=== PATIENT | female | born 1995 | race African-American/Black ===

== ENCOUNTER 2017-09-27 20:55 | Emergency (ER) | payer OTHER ==
[2017-09-27] MEDS ORDERED: HYDROcodone/Acetaminophen 10/325 mg Tablet ONE (21:02)
[2017-09-27] MEDS ORDERED: Adacel (T-DAP) 0.5 ML VIAL ONE (21:06)
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
== END 2017-09-27 21:50 | disposition home or self-care (01) ==
LOC: ERS 20:55
DX: S63.501A Unspecified sprain of right wrist, initial encounter (principal); S60.011A Contusion of right thumb without damage to nail, initial encounter; J45.909 Unspecified asthma, uncomplicated; F41.9 Anxiety disorder, unspecified; Z79.899 Other long term (current) drug therapy; V43.52XA Car driver injured in collision with other type car in traffic accident, initial encounter
CPT/HCPCS: 90471; 90715

== ENCOUNTER 2017-10-02 12:01 | Emergency (ER) | payer OTHER ==
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
== END 2017-10-02 16:29 ==
LOC: ERS 12:01
DX: F07.81 Postconcussional syndrome (principal); J45.909 Unspecified asthma, uncomplicated; F41.9 Anxiety disorder, unspecified; Z79.899 Other long term (current) drug therapy
CPT/HCPCS: 70450

== ENCOUNTER 2017-11-02 17:46 | Emergency (ER) | payer OTHER ==
[2017-11-02] MEDS ORDERED: methylPREDNISolone Sod Succ/PF 125 MG/2 ML VIAL ONE (18:20)
== END 2017-11-02 19:46 | disposition home or self-care (01) ==
LOC: ERS 17:46
DX: J45.901 Unspecified asthma with (acute) exacerbation (principal); F43.9 Reaction to severe stress, unspecified; F41.9 Anxiety disorder, unspecified; F32.9 Major depressive disorder, single episode, unspecified; Z79.899 Other long term (current) drug therapy
CPT/HCPCS: 96374; J2930

== ENCOUNTER 2017-11-19 15:51 | Outpatient (CLI) | payer OTHER | END 2017-11-19 15:52 | disposition home or self-care (01) | LOC: BICCT 15:51 | PROVIDERS: ATTEND Family Medicine | DX: S62.231A Other displaced fracture of base of first metacarpal bone, right hand, initial encounter for closed fracture (principal); M54.12 Radiculopathy, cervical region ==

== ENCOUNTER 2018-02-28 21:19 | Emergency (ER) | payer OTHER, SELFPAY ==
[2018-02-28 22:20] LABS: Bilirubin Negative (Negative); Blood, Urine Negative (Negative); Clarity CLEAR (Clear); Glucose, Urine (Dipstick) Negative (Negative); Leukocyte Negative (Negative); Nitrite Negative (Negative); Protein, Urine (Dipstick) Negative (Neg-Trace); Specific Gravity, Urine 1.026 (1.002-1.036)
[2018-02-28 22:23] LABS: Pregnancy Test - Urine (BHCG) POSITIVE (Negative); Pregu Control Background? CLEAR/WHITE (CLR/WHITE); Pregu Control Bar Appear? YES (CONTROL BAR); Specific Gravity 1.026 (1.002-1.036)
--- NOTE | 2018-03-01 10:25 | ULT ---
PRELIMINARY REPORT/[facility]/EMERGENTY AFTER-HOURS PROCEDURE US , Transvaginal CLINICAL HISTORY: 22 years old, female; ; Pain; Cramping at 4 wks preg; Hcg = 201 TECHNIQUE: Real-time transvaginal obstetrical ultrasound of the maternal pelvis and a first trimester with image documentation. Transvaginal imaging was used for better evaluation of the fetus and adnexa . COMPARISON: No relevant prior studies available. FINDINGS: The uterus measures 8.7 x 4.7 x 5.7 cm and exhibits homogeneous echogenicity. Enometrial stripe measures 1.1 cm without evidence of internal fluid within the endometrial canal. No evidence of intrauterine . The right ovary measures 3.8 x 2.3 x 1.8 cm. The left ovary measures 2.4 x 1.0 x 2.1 cm. Normal Doppler flow to each ovary. Minimal amount of free pelvic fluid. IMPRESSION: No evidence of intrauterine . Normal uterus and ovaries. Thank you for allowing us to participate in the care of your patient. Dictated and Authenticated by: Saturnino Zavala MD 03/01/2018 12:57 AM Central Time ([place] & [place]) FINAL REPORT PELVIC ULTRASOUND: HISTORY: Pelvic pain, , and cramping. The patient is reported 4 weeks . HCG is 201. FINDINGS: Real-time imaging of the pelvis was obtained endovaginally. This shows a uterus measuring 4.6 x 5.7 x 8.6 cm. The endometrium is heterogeneous in appearance. It is thickened measuring in the 1 cm ran ge. No intrauterine is identified. The left ovary is normal in size and appearance. The right ovary also appears unremarkable. DOPPLER EVALUATION WITH SPECTRAL ANALYSIS: Normal flow is shown through the adnexa. IMPRESSION: 1. No signs of any intrauterine or ectopic . This does not exclude an early intrauterine o r ectopic. 2. This report is in agreement with the temporary report issued by [facility].
[2018-03-02 13:19] LABS: Chlamydia by PCR Not Detected (NotDetected); GC by PCR Not Detected (NotDetected)
== END 2018-03-01 01:08 | disposition home or self-care (01) ==
LOC: ERS 21:19
DX: R10.30 Lower abdominal pain, unspecified (principal); J45.909 Unspecified asthma, uncomplicated; F41.9 Anxiety disorder, unspecified; F32.9 Major depressive disorder, single episode, unspecified
CPT/HCPCS: 36415; 76856; 81003; 81025; 84702; 87480; 87491; 87510; 87591; 87660

== ENCOUNTER 2018-07-06 12:01 | Day surgery (SDC) | payer MEDICAID, OTHER ==
[2018-07-06] MEDS ORDERED: Ondansetron PF 4 MG/2 ML Vial IVP PRN (12:23)
[2018-07-06] MEDS ORDERED: Promethazine HCl 25 MG/ML VIAL IM PRN (12:23)
[2018-07-06] MEDS ORDERED: Acetaminophen 500 MG TAB PO PRN (12:23)
[2018-07-06] MEDS ORDERED: Dextrose 5%-Lactated Ringers 1,000 ML IV SCH (12:30)
--- NOTE | 2018-07-06 12:31 | PDOC.LDHP ---
Labor and Delivery H&P HPI: 20 y/o at 22 and 0/7 weeks, who called the office this morning c/o severe "billious" vomiting. No Diarrhea, (pos) Nausea. No fever reported. Current gestational age (weeks): 22 Grav: 2 Para: 1 Abnormal US findings: No Current medications: pre- vitamins Previous surgical history: none Allergies/Adverse Reactions: Allergies Allergy/AdvReac Type Severity Reaction Status Date / Time amoxicillin Allergy Verified 06/18/15 03:08 Penicillins Allergy Verified 06/18/15 03:08 Social history: none - Physical Exam Vital signs reviewed and normal: yes General: NAD, resting Heart: RRR Lungs: CTAB Abdomen: gravid Extremeties: no edema FHT: category 1 - Assessment Nausea/Vomiting in - Plan -: CMP, IV Fluids, AntiEmetics, Gallbladder US, UA
[2018-07-06 13:16] LABS: Hemoglobin 12.1 g/dL (12.0-16.0); Mean Corpuscular HGB CONC 33.5 g/dL (32.0-36.0); Mean Corpuscular Hemoglobin 29.7 pg (27.0-31.0); Mean Corpuscular Volume 88.6 fL (78.0-98.0); Mean Platelet Volume 7.5 fL (7.4-10.4); Platelet Count 214 thou/uL (130-400); RBC Distribution Width 12.4 % (11.5-14.5); Red Blood Cell (RBC) Count 4.07 mill/uL (4.20-5.40); White Blood Cell (WBC) Count 8.5 thou/uL (4.8-10.8)
[2018-07-06 13:20] LABS: Bilirubin Small (Negative); Blood, Urine Negative (Negative); Clarity CLEAR (Clear); Glucose, Urine (Dipstick) Negative (Negative); Leukocyte Small (Negative); Nitrite Negative (Negative); Protein, Urine (Dipstick) 30 mg/dL (Neg-Trace); Specific Gravity, Urine 1.032 (1.002-1.036); Urobilinogen 0.2 mg/dL (0.2-1.0)
[2018-07-06 13:22] LABS: Bacteria/HPF None Seen HPF (None Seen); Hyaline Casts/LPF 0-3 HYALINE CAST LPF (0-3 Hyaline); Pathc Cast-AUWi Flag 0.58 (0-2.49); RBC/HPF 0-3 HPF (0-3); WBC/HPF 0-3 HPF (0-3)
[2018-07-06 13:39] LABS: ALT (SGPT) Less than 7 U/L (8-55); AST (SGOT) 16 U/L (5-34); Albumin 3.7 g/dL (3.5-5.0); Alkaline Phosphatase 79 U/L (40-150); Anion Gap 14 mmol/L (10-20); BUN (Urea Nitrogen) 5 mg/dL (7.0-18.7); Bilirubin, Total 0.4 mg/dL (0.2-1.2); Calc. Creatinine Clearance 0 mL/min (70-130); Calcium 9.4 mg/dL (7.8-10.44); Carbon Dioxide 22 mmol/L (22-29); Chloride 105 mmol/L (98-107); Estimated GFR-MDRD Greater than 90; Globulin 3.2 g/dL (2.4-3.5); Glucose 74 mg/dL (70-105); Potassium 3.6 mmol/L (3.5-5.1); Protein, Total 6.9 g/dL (6.0-8.3); Sodium 137 mmol/L (136-145)
--- NOTE | 2018-07-06 14:09 | ULT ---
ULTRASOUND GALLBLADDER RIGHT UPPER QUADRANT: History: Vomiting. Comparison: None. FINDINGS: Real-time grayscale color evaluation of the abdomen was performed. Liver measures 11.8 cm in length. There is normal appearance to the gallbladder wall measuring less t rosen 3 mm. There is some small volume gallbladder sludge. No pericholecystic fluid. Sonographic Borrero's sign is negative. Visualized portions of the pancreas and IVC are unremarkable. Hepatic echotexture is normal. No mass. Portal vein is patent. Antegrade flow. Common bile duct measu res 4 mm. Right kidney measures 8.5 x 4.5 x 4.6 cm without mass, hydronephrosis or abnormal calcifications. IMPRESSION: Small volume gallbladder sludge. Otherwise, unremarkable exam. POS: [facility]
[2018-07-06 14:16] VITALS: BMI 28.8
== END 2018-07-06 15:30 | disposition home health service (06) ==
LOC: L&D/OP 12:01
PROVIDERS: ATTEND Obstetrics & Gynecology
DX: O21.2 Late vomiting of pregnancy (principal); Z3A.22 22 weeks gestation of pregnancy; Z88.0 Allergy status to penicillin; Z79.899 Other long term (current) drug therapy
CPT/HCPCS: 36415; 76705; 80053; 81003; 81015; 85027; 96360; 96375; 99284; J2405

== ENCOUNTER 2018-08-30 13:44 | Day surgery (SDC) | payer OTHER ==
[2018-08-30 14:16] VITALS: BMI 31.8
--- NOTE | 2018-08-30 15:31 | PRG ---
DATE OF SERVICE: PRESENTING COMPLAINT: Decreased movement, vaginal bleeding, post coital at 30 weeks gestation. HISTORY OF PRESENT ILLNESS: Ms. Benjamin see Dr. Chao. Her final ELISEO is 514, placing her at 30 weeks gestation. She reports that she has had decreased movement today after some spotting with intercourse last night. She had some cramps yesterday, but none today. Upon presentation, she states that she has begun to feel movement on the way to the hospital. 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 MEDICAL HISTORY: Denies. SURGICAL HISTORY: Denies. ALLERGIES: AMOXICILLIN AND PENICILLIN. MEDICATIONS: 1. Albuterol. 2. Keflex. 3. Hydrocodone. 4. Flagyl. OB LABS: Blood type and Rh are not on the antepartum record. Hematocrit is not on the OB record. OB record only contains negative genetic screening test and a normal 50 g. SOCIAL HISTORY: Denies tobacco, alcohol, or drug use. FAMILY HISTORY: Noncontributory. REVIEW OF SYSTEMS: Noncontributory. PHYSICAL EXAMINATION: GENERAL: Black female, in no acute distress. VITAL SIGNS: Blood pressure 118/72, pulse 85, respirations 18, temperature 97.6. HEENT: Within normal limits. LUNGS: Clear to auscultation bilaterally. HEART: Regular rate and rhythm. ABDOMEN: Soft, nontender. Fundal height 30 cm. FHTs 140s. GENITALIA: Vulva without lesions. Vagina, sterile spec exam was performed, normal leukorrhea. Her was noted with a cervix, it was slightly friable with small amount of apparent post trauma erythema. No dilatation noted visually. No bulging membranes. Digital exam revealed a cervix that was soft, but long and high and closed. EXTREMITIES: No clubbing, cyanosis, or edema. Prolonged monitoring for greater 30 minutes was carried out which revealed FHTs in the 140s to 150s, positive acceleration, no decelerations. No contractions. Category I heart rate tracing. IMPRESSION: Reactive NST with no evidence of labor with postcoital spotting and decreased movement, now resolved in the third trimester. PLAN: Reassurance. ER precautions, discharge home. The patient to keep scheduled followup in [address] Chao. Job ID: [id number]
== END 2018-08-30 15:05 | disposition home or self-care (01) ==
LOC: L&D/OP 13:44
PROVIDERS: ATTEND Obstetrics & Gynecology
DX: O36.8130 Decreased fetal movements, third trimester, not applicable or unspecified (principal); O46.93 Antepartum hemorrhage, unspecified, third trimester; Z3A.30 30 weeks gestation of pregnancy; Z88.1 Allergy status to other antibiotic agents; Z88.0 Allergy status to penicillin
CPT/HCPCS: 99282

== ENCOUNTER 2018-10-18 23:51 | Day surgery (SDC) | payer OTHER ==
[2018-10-19 00:29] VITALS: BP 123/77; TEMP 98; BMI 32.4
[2018-10-19] MEDS ORDERED: Albuterol Sulfate 2.5 mg/3 ml Neb NEB SCH (02:00)
--- NOTE | 2018-10-19 03:02 | ER ---
DATE OF SERVICE: 10/19/2018 TIME OF SERVICE: 2:30 a.m. PRESENTING COMPLAINT: Decreased movement and contractions. HISTORY OF PRESENT ILLNESS: Ms. Benjamin is a 23-year-old G2, P1 with an EDC of 11/09. She [address] Dr[address] Chao. She reports decreased movement this evening and contractions and just wanted to get her baby checked out. 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 O positive. Antibody negative. Pap negative. Rubella immune. VDRL nonreactive. Hepatitis B, GC, chlamydia negative. Group B strep not on the chart. MEDICAL HISTORY: Mild asthma. SURGICAL HISTORY: Denies. ALLERGIES: DENIES. MEDICATIONS: vitamins. SOCIAL HISTORY: Denies tobacco, alcohol, or IV drug use. FAMILY HISTORY: Noncontributory. REVIEW OF SYSTEMS: Noncontributory. PHYSICAL EXAMINATION: GENERAL: White female resting comfortably. VITAL SIGNS: Blood pressure 119/73, pulse 107, temperature 98, respirations 18. HEENT: Within normal limits. LUNGS: Clear to auscultation bilaterally. HEART: Regular rate and rhythm. Mild tachycardia. ABDOMEN: Soft with occasional indelible contractions. FHTs 140s. VULVA: Without lesions. VAGINA: Without discharge. CERVIX: 1, long and high cephalic ballots. No evidence of rupture of membranes. Nonstress test was carried out for 2 hours. Category I heart rate tracing was noted with positive accelerations, no decelerations. Baseline is 140s to 150s. The patient had complaints of mild asthma, was administered albuterol nebulizer x1 and responded well to that. Cervix was rechecked for 2 hours with no change. IMPRESSION: No evidence of labor at 37 weeks' gestation with a reactive heart rate tracing. PLAN: Discharge home. Keep scheduled followup with Dr. Chao. Job ID: [id number]
== END 2018-10-19 02:45 | disposition home or self-care (01) ==
LOC: L&D/OP 23:51
PROVIDERS: ATTEND Obstetrics & Gynecology
DX: O36.8130 Decreased fetal movements, third trimester, not applicable or unspecified (principal); O47.1 False labor at or after 37 completed weeks of gestation; O99.513 Diseases of the respiratory system complicating pregnancy, third trimester; J45.909 Unspecified asthma, uncomplicated; Z88.0 Allergy status to penicillin; Z79.899 Other long term (current) drug therapy; Z3A.37 37 weeks gestation of pregnancy
CPT/HCPCS: 94640; 99283; J7611

== ENCOUNTER 2018-10-21 12:39 | Inpatient (IN) | payer OTHER ==
[~2018-10-21 12:39] MED LIST: Bupivacaine/Epinephrine 0.25% 30 ML VIAL ONE
[2018-10-21 13:19] VITALS: BMI 31.3
[2018-10-21] MEDS ORDERED: Ondansetron PF 4 MG/2 ML Vial IVP PRN (18:56)
[2018-10-21] MEDS ORDERED: Ibuprofen 800 MG TAB PO PRN (18:56)
[2018-10-21] MEDS ORDERED: HYDROcodone/Acetaminophen 5/325 mg Tablet PO PRN ×2 (18:56)
[2018-10-21] MEDS ORDERED: Butorphanol Tartrate 1 MG/ML VIAL SLOW IVP PRN (18:56)
[2018-10-21] MEDS ORDERED: NS / Oxytocin 40 units/1000ml 1,000 ML IV PRN (18:56)
[2018-10-21] MEDS ORDERED: Lidocaine 1% (PF) 30 ML VIAL SC PRN (18:56)
[2018-10-21] MEDS ORDERED: Lactated Ringer's 1,000 ML IV SCH (19:00)
[2018-10-21] MEDS ORDERED: Fentanyl 4 mcg/Bup 0.1% Cadd 100 ML ONE (19:30)
[2018-10-21 19:39] LABS: Hemoglobin 11.9 g/dL (12.0-16.0); Mean Corpuscular HGB CONC 32.4 g/dL (32.0-36.0); Mean Corpuscular Hemoglobin 27.9 pg (27.0-31.0); Mean Corpuscular Volume 86.3 fL (78.0-98.0); Mean Platelet Volume 7.6 fL (7.4-10.4); Platelet Count 198 thou/uL (130-400); RBC Distribution Width 12.6 % (11.5-14.5); Red Blood Cell (RBC) Count 4.25 mill/uL (4.20-5.40); White Blood Cell (WBC) Count 13.1 thou/uL (4.8-10.8)
[2018-10-21 20:19] LABS: Syphilis Antibody Nonreactive (Nonreactive); Syphilis Antibody Index 0.04 S/CO (<1.00 Non-Reactive)
[2018-10-22 00:15] LABS: HBSAg Index 0.33 S/CO (0-0.99); Hep B Surf Ag Non-Reactive S/CO (NonReactive)
[2018-10-22] MEDS ORDERED: Promethazine HCl 25 MG/ML VIAL IM PRN ×2 (01:19→13:08)
[2018-10-22] MEDS ORDERED: Hydrocerin (Eucerin) Cream 120 gm Jar TOP PRN (01:19)
[2018-10-22] MEDS ORDERED: Lactated Ringer's 500 ML IV PRN (01:19)
[2018-10-22] MEDS ORDERED: Naloxone HCl 0.4 mg/ml Vial IVP PRN ×2 (01:19)
[2018-10-22] MEDS ORDERED: Acetaminophen 325 MG TAB PO PRN (01:19)
[2018-10-22] MEDS ORDERED: ePHEDrine/0.9% NaCl/PF SYRINGE 50 mg/10 ml SLOW IVP PRN (01:19)
[2018-10-22] MEDS ORDERED: diphenhydrAMINE 50 MG/ML VIAL IVP PRN (01:19)
[2018-10-22] MEDS ORDERED: Ondansetron PF 4 MG/2 ML Vial IVP PRN ×2 (01:19→13:08)
[2018-10-22] MEDS ORDERED: Fentanyl 4 mcg/Bupivacaine 0.1% Cassette 100 ML EPIDURAL SCH (01:30)
[2018-10-22] MEDS ORDERED: Communication Order-Pharmacy FS SCH (01:30)
[2018-10-22] MEDS: Lactated Ringer's 1,000 ML IV SCH ×2 (03:16→08:41)
[2018-10-22] MEDS ORDERED: Oxytocin 10 UNITS/ML VIAL ONE (06:16)
[2018-10-22] MEDS ORDERED: NS w/ Oxytocin 10 units 500 ML IVPB SCH (06:30)
[2018-10-22] MEDS ORDERED: Lidocaine 1% (PF) 30 ML VIAL ONE (07:45)
[2018-10-22] MEDS ORDERED: NS / Oxytocin 40 units/1000ml 1,000 ML ONE (07:45)
[2018-10-22] MEDS ORDERED: Fentanyl 4 mcg/Bup 0.1% Cadd 100 ML ONE (08:28)
--- NOTE | 2018-10-22 10:45 | PDOC.EVN ---
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 I arrived within in 1 min of call. Called for FHR decel over 3 minutes to 70s. HX: Recent PATRIC with hypotension noted to 110s/60s from her baseline. Her last exam was 6cm...now by RN just prior to my eval. I arrived to find patient in lateral decub. FHTs now 120s. I performed Vag exam: CX by my exam, Cephalic. Internal placed by RN prior to my arrival Assessment: with FHR decel now recovered likely due to PATRIC induced hypotension and rapid cervical change. Plan: IVF bolus in use; anesthesia aware; Dr Chao (patients provider) called. Follow closely.
--- NOTE | 2018-10-22 12:37 | PDOC.LDHP ---
Labor and Delivery H&P Chief complaint: contractions Current gestational age (weeks): 38 Grav: 2 Para: 1 Current complications: none Abnormal US findings: No Current medications: pre- vitamins Previous surgical history: none Allergies/Adverse Reactions: Allergies Allergy/AdvReac Type Severity Reaction Status Date / Time amoxicillin Allergy Verified 10/21/18 13:15 Penicillins Allergy Verified 10/21/18 13:15 Social history: none - Physical Exam Vital signs reviewed and normal: yes General: NAD, resting, breathing through contractions Heart: RRR Lungs: CTAB Abdomen: gravid Extremeties: no edema FHT: category 1 - Vaginal Exam cm dilated: 5 - Assessment L&D Assessment: term patient in labor - Plan Plan: admit to L&D, labor augmentation if indicated
[2018-10-22] MEDS ORDERED: Bisacodyl 10 MG SUPP PR PRN (13:08)
[2018-10-22] MEDS ORDERED: Methylergonovine 0.2 MG/ML VIAL IM PRN (13:08)
[2018-10-22] MEDS ORDERED: Benzocaine-Menthol 82.5 ML CAN TOP PRN (13:08)
[2018-10-22] MEDS ORDERED: HYDROcodone/Acetaminophen 5/325 mg Tablet PO PRN ×2 (13:08)
[2018-10-22] MEDS ORDERED: Milk Of Magnesia 30 ML UDCUP PO PRN (13:08)
[2018-10-22] MEDS ORDERED: diphenhydrAMINE 25 MG CAP PO PRN (13:08)
[2018-10-22] MEDS ORDERED: Measles/Mumps/Rubella 10 MCG/0.5 ML VIAL SC ONE (13:08)
[2018-10-22] MEDS ORDERED: Lanolin Ointment 7 GM TUBE TOP PRN (13:08)
[2018-10-22] MEDS ORDERED: NS / Oxytocin 40 units/1000ml 1,000 ML IV SCH (13:08)
[2018-10-22] MEDS ORDERED: Adacel (T-DAP) 0.5 ML SYRINGE IM ONE (13:08)
[2018-10-22] MEDS ORDERED: Preparation H Ointment 28 GM TUBE PR PRN (13:08)
[2018-10-22] MEDS ORDERED: Varicella virus, LIVE 0.5 ML VIAL SC ONE (13:08)
[2018-10-22] MEDS: Ibuprofen 800 MG TAB PO SCH (15:59)
[2018-10-22] MEDS: Docusate Calcium (SURFAK) 240 MG CAP PO SCH (21:12)
[2018-10-22] MEDS: Ferrous Sulfate 325 MG TAB PO SCH (23:27)
[2018-10-23] MEDS: Ibuprofen 800 MG TAB PO SCH ×4 (00:19→22:12)
[2018-10-23 05:41] LABS: Hemoglobin 9.4 g/dL (12.0-16.0); Mean Corpuscular HGB CONC 32.2 g/dL (32.0-36.0); Mean Corpuscular Hemoglobin 28.6 pg (27.0-31.0); Mean Corpuscular Volume 88.7 fL (78.0-98.0); Mean Platelet Volume 7.6 fL (7.4-10.4); Platelet Count 165 thou/uL (130-400); RBC Distribution Width 12.7 % (11.5-14.5); Red Blood Cell (RBC) Count 3.28 mill/uL (4.20-5.40); White Blood Cell (WBC) Count 14.8 thou/uL (4.8-10.8)
[2018-10-23] MEDS: Ferrous Sulfate 325 MG TAB PO SCH ×2 (09:24→17:46)
[2018-10-23] MEDS: Docusate Calcium (SURFAK) 240 MG CAP PO SCH ×2 (09:24→22:11)
--- NOTE | 2018-10-23 12:34 | PDOC.PP ---
Post Progress Note Post Day #: 1 PO intake tolerated: yes Flatus: yes Ambulation: yes Vital Signs (12 hours) Temp Pulse Resp BP BP Pulse Ox 10/23/18 11:46 97.9 F 89 16 126/69 97 10/23/18 08:00 97.9 F 80 16 116/57 L 97 10/23/18 05:00 98.7 F 75 20 87/51 L Weight Weight 200 lb - Physical Examination General: NAD Cardiovascular: no m/r/g Respiratory: clear to auscultation bilaterally, non-labored breathing Abdominal: + bowel sounds, lochia, no distention Extremities: negative homans (B) Neurological: no gross focal deficits Psychiatric: A&Ox3 (DC to home in the morning), normal affect Result Diagrams: 10/23/18 04:39 Additional Labs: Post Labs Blood Type O POSITIVE 10/21/18 19:30 Hep Bs Antigen Non-Reactive S/CO (NonReactive) 10/21/18 19:30
[2018-10-23 23:41] VITALS: BP 136/82; TEMP 98.2
--- NOTE | 2018-10-24 03:58 | DN ---
DATE OF PROCEDURE: 10/22/2018 PREOPERATIVE DIAGNOSIS: Intrauterine at 37 weeks and 2 days with spontaneous labor, non-reassuring heart tones during the 2nd stage of labor, necessitating expedited delivery using the Kiwi vacuum delivery method. POSTOPERATIVE DIAGNOSIS: Intrauterine at 37 weeks and 2 days with spontaneous labor, non-reassuring heart tones during the 2nd stage of labor, necessitating expedited delivery using the Kiwi vacuum delivery method. PROCEDURE PERFORMED: Vacuum-assisted vaginal delivery using the Kiwi vacuum system. FINDINGS: Viable male infant weighing 2961 g or 6 pounds 8 ounces. Apgars 9 and 9. QUANTITATIVE BLOOD LOSS: 110 mL. COMPLICATIONS: None. PROCEDURE IN DETAIL: The patient presented to [facility] where she was admitted to the labor and delivery service. The patient underwent a normal and uneventful labor with normal cervical dilatation until she was found to be completely dilated. She was then allowed to push and was able to bring the baby down and delivered the baby in a vertex presentation without difficulties. Once the head delivered in occiput anterior position, the shoulders followed spontaneously along with the rest of the baby's body. Once out the baby's mouth and nose were bulb suctioned. The cord was clamped and cut and baby was handed to waiting attendants. Cord blood was collected. Gentle fundal massage was performed and the placenta delivered intact without problems. Hemostasis was assured. Quantitative blood loss was calculated. Inspection of the cervix, vaginal vault, and perineum did not reveal any lacerations needing suturing. Once again, hemostasis was within normal limits and the patient was allowed to recover in the labor and delivery room. Baby went to nursery. Addendum: The Kiwi vacuum was applied once the patient was completely dilated. It was used through two contractions resulting in the delivery of the head without difficulty. The shoulders delivered spontaneously without issues. Job ID: [id number]
[2018-10-24] MEDS: Ibuprofen 800 MG TAB PO SCH ×2 (06:18→06:30)
[2018-10-24] MEDS: Ferrous Sulfate 325 MG TAB PO SCH (09:43)
[2018-10-24] MEDS: Docusate Calcium (SURFAK) 240 MG CAP PO SCH (09:43)
== END 2018-10-24 11:45 | disposition home or self-care (01) | DRG 807 ==
LOC: L&D/OP 12:39 → L&D 20:35 → 3SW 10-22 19:03
PROVIDERS: ADMIT Obstetrics & Gynecology; ATTEND Obstetrics & Gynecology
PROC: 10D07Z6 Extraction of Products of Conception, Vacuum, Via Natural or Artificial Opening (ICD-10-PCS; principal; 2018-10-22)
DX: O76 Abnormality in fetal heart rate and rhythm complicating labor and delivery (principal); Z37.0 Single live birth; Z3A.37 37 weeks gestation of pregnancy; Z88.0 Allergy status to penicillin
CPT/HCPCS: 36415; 51702; 85027; 86780; 86850; 86900; 86901; 87340; 99285; J2001; J2405; J2590

== ENCOUNTER 2018-11-26 04:08 | Emergency (ER) | payer OTHER ==
[2018-11-26] MEDS ORDERED: Famotidine/PF 20 mg/2ml Vial ONE (05:22)
[2018-11-26] MEDS ORDERED: Metoclopramide HCl 10 MG/2 ML VIAL ONE (05:22)
[2018-11-26] MEDS ORDERED: diphenhydrAMINE 50 MG/ML VIAL ONE (05:22)
[2018-11-26 05:37] LABS: #Lymphocytes 0.7 thou/uL (1.20-3.40); #Monocytes 0.2 thou/uL (0.11-0.59); %Lymphocytes 14.2 % (21.0-51.0); %Monocytes 4.4 % (0.0-10.0); %Neutrophils 80.4 % (42.0-75.0); Hemoglobin 12.4 g/dL (12.0-16.0); Mean Corpuscular HGB CONC 31.2 g/dL (32.0-36.0); Mean Corpuscular Hemoglobin 27.7 pg (27.0-31.0); Mean Corpuscular Volume 88.9 fL (78.0-98.0); Mean Platelet Volume 7.9 fL (7.4-10.4); Platelet Count 191 thou/uL (130-400); Red Blood Cell (RBC) Count 4.48 mill/uL (4.20-5.40)
[2018-11-26 05:47] LABS: BHCG - Serum Negative (NEGATIVE); Pregs Control Background? CLEAR/WHITE (CLR/WHITE); Pregs Control Bar Appear? YES (CONTROL BAR)
[2018-11-26 05:59] LABS: ALT (SGPT) 7 U/L (8-55); AST (SGOT) 16 U/L (5-34); Albumin 3.7 g/dL (3.5-5.0); Alkaline Phosphatase 101 U/L (40-150); Anion Gap 13 mmol/L (10-20); BUN (Urea Nitrogen) 7 mg/dL (7.0-18.7); Bilirubin, Total 0.6 mg/dL (0.2-1.2); Calc. Creatinine Clearance 0 mL/min (70-130); Calcium 9.2 mg/dL (7.8-10.44); Carbon Dioxide 23 mmol/L (22-29); Chloride 105 mmol/L (98-107); Estimated GFR-MDRD Greater than 90; Globulin 3.3 g/dL (2.4-3.5); Glucose 107 mg/dL (70-105); Lipase 12 U/L (8-78); Potassium 3.8 mmol/L (3.5-5.1); Sodium 137 mmol/L (136-145)
== END 2018-11-26 06:38 | disposition home or self-care (01) ==
LOC: ERS 04:08
DX: R11.2 Nausea with vomiting, unspecified (principal); R19.7 Diarrhea, unspecified; F41.9 Anxiety disorder, unspecified; F32.9 Major depressive disorder, single episode, unspecified
CPT/HCPCS: 80053; 83690; 84703; 85025; 96365; 96372; 96375; J0500; J1200; J2765; S0028

== ENCOUNTER 2020-01-11 21:52 | Emergency (ER) | payer OTHER, SELFPAY | END 2020-01-11 22:30 | disposition home or self-care (01) | LOC: ERS 21:52 | DX: J45.901 Unspecified asthma with (acute) exacerbation (principal); F41.9 Anxiety disorder, unspecified; F32.9 Major depressive disorder, single episode, unspecified; Z79.899 Other long term (current) drug therapy | CPT/HCPCS: 99284 ==

== ENCOUNTER 2021-05-30 08:41 | Emergency (ER) | payer BC ==
[2021-05-30 11:17] LABS: Bilirubin Negative (Negative); Blood, Urine Negative (Negative); Clarity Clear (Clear); Glucose, Urine (Dipstick) Normal (Negative); Ketone, Urine Negative (Negative); Leukocyte Negative Leu/uL (Negative); Nitrite Negative (Negative); Protein, Urine (Dipstick) Negative (Neg-Trace); Specific Gravity, Urine 1.023 (1.002-1.036); Urobilinogen Normal mg/dL (Less than 2); pH, Urine 6.5 (5.0-9.0)
[2021-05-30] MEDS ORDERED: Acetaminophen 500 MG TAB ONE (12:05)
[2021-06-02 20:47] LABS: Chlamydia by PCR Inconclusive (NotDetected); GC by PCR Inconclusive (NotDetected)
== END 2021-05-30 12:21 | disposition home or self-care (01) ==
LOC: ERS 08:41
DX: O26.891 Other specified pregnancy related conditions, first trimester (principal); R10.2 Pelvic and perineal pain; O99.511 Diseases of the respiratory system complicating pregnancy, first trimester; J45.909 Unspecified asthma, uncomplicated; Z3A.09 9 weeks gestation of pregnancy; Z79.899 Other long term (current) drug therapy
CPT/HCPCS: 36415; 76856; 81003; 84702; 86900; 86901; 87480; 87491; 87510; 87591; 87660